=== PATIENT | male | born 1975 | race Caucasian/White ===

== ENCOUNTER 2023-05-22 18:05 | Outpatient (CLI) | payer OTHER, SELFPAY | END 2023-05-22 18:06 | disposition home or self-care (01) | LOC: NFLDREF 05-23 06:33 | PROVIDERS: Visit Provider Nurse Practitioner Family | DX: N39.0 Urinary tract infection, site not specified (principal) | CPT/HCPCS: 87086; 87186 ==

== ENCOUNTER 2024-12-05 16:30 | Outpatient (CLI) | payer OTHER, SELFPAY | END 2024-12-05 16:31 | disposition home or self-care (01) | LOC: NFLDREF 12-10 15:45 | PROVIDERS: Visit Provider Physician Assistant | DX: N39.0 Urinary tract infection, site not specified (principal) | CPT/HCPCS: 87086 ==